=== PATIENT | female | born 1935 | race African-American/Black ===

== ENCOUNTER 2016-11-08 13:38 | Inpatient (IN) | payer MEDICARE, MEDICAID ==
[~2016-11-08] VITALS: Ht 170.2 cm; Wt 96.2 kg
[~2016-11-08 13:38] MED LIST: AMLO5TAB88 PO; ASPI-867 PO; ATOR20TA65 PO; CALC667C PO; Docusate Sodium PO; GABA-529 PO; LEVO250T2 PO; LOSA25TA3 PO; NEPVIT PO; OMEP20CA10 PO; PRED5TAB48 PO; [UNRECOGNIZED DRUG - CODE] PO
[2016-11-08] MEDS ORDERED: FUROSEMIDE 40MG/4ML VIAL IV STA (16:44)
[2016-11-08 17:15] LABS: BASOPHILS % 1.7 % (0.0-2.0); EOSINOPHILS % 6.8 % (0.0-5.0); HEMATOCRIT. 32.6 % (36.0-48.0); HEMOGLOBIN. 10.7 g/dL (12.0-16.0); LYMPHOCYTES % 25.9 % (20.0-50.0); MEAN CORPUSCULAR HEMOGLOBIN 30.5 pg (28.0-32.0); MEAN CORPUSCULAR VOLUME 93.2 fL (81.0-99.0); MEAN PLATELET VOLUME 9.4 fl (7.4-10.4); MONOCYTES % 6.2 % (2.0-8.0); NEUTROPHILS % 59.4 % (40.0-76.0); PLATELET 253 x1000/uL (130-400); RED CELL DISTRIBUTION WIDTH 16.4 % (11.6-14.6)
[2016-11-08 17:22] LABS: PARTIAL THROMBOPLASTIN TIME 24.5 sec (24.0-34.0); PROTHROMBIN TIME 10.4 sec
[2016-11-08 17:24] LABS: CARBON DIOXIDE 28 mEq/L (21-32); CHLORIDE 98 mEq/L (98-107)
[2016-11-08 17:30] LABS: CREATINE KINASE 143 IU/L (26-192)
[2016-11-08 17:31] LABS: TROPONIN I < 0.02 ng/mL (0.00-0.04)
[2016-11-08 22:00] VITALS: BP 126/61
[2016-11-08 22:32] LABS: CLARITY URINE CLOUDY (CLEAR); COLOR URINE YELLOW (YELLOW); GLUCOSE URINE NEGATIVE (NEGATIVE); KETONES URINE NEGATIVE (NEGATIVE); LEUKOCYTE ESTERASE URINE 3+ (NEGATIVE); NITRITE URINE POSITIVE (NEGATIVE); OCCULT BLOOD URINE 1+ (NEGATIVE); PH URINE 5.5 (4.5-8.0); PROTEIN URINE 1+ (NEGATIVE); SPECIFIC GRAVITY URINE 1.012 (1.005-1.030); UROBILINOGEN URINE 0.2 E.U./dL (0.2-1.0)
[2016-11-09] VITALS: BP_SYST 126; BP_SYST 135; BP_DIAS 61; BP_DIAS 70
[2016-11-09] MEDS ORDERED: SEVE800T8 PO (00:33)
[2016-11-09] MEDS ORDERED: INSASP SQ (00:33)
[2016-11-09] MEDS ORDERED: INSU3INS6 SUBCUT (00:33)
[2016-11-09] MEDS ORDERED: HYDROCODONE/ACETAMINOPHEN 5/325MG TABLET PO PRN (01:15)
[2016-11-09] MEDS ORDERED: DEXTROSE 50% WATER 50ML SYRINGE IV PRN (01:15)
[2016-11-09] MEDS ORDERED: LEVOFLOXACIN 500MG PREMIX 100 ML IV SCH (03:00)
[2016-11-09 04:00] VITALS: BP 138/78
[2016-11-09] MEDS: BLOOD SUGAR DIAGNOSTIC STRIP TEST SCH ×4 (06:32→21:17)
[2016-11-09 06:52] LABS: HEMATOCRIT 30.6 % (36.0-48.0); HEMOGLOBIN 10.1 g/dL (12.0-16.0); MEAN CORPUSCULAR HEMOGLOBIN 30.6 pg (28.0-32.0); MEAN CORPUSCULAR VOLUME 92.8 fL (81.0-99.0); PLATELET 243 x1000/uL (130-400); RED BLOOD CELL COUNT 3.29 mill/uL (4.2-5.4); RED CELL DISTRIBUTION WIDTH 16.4 % (11.6-14.6)
[2016-11-09 08:00] VITALS: BP 141/66
[2016-11-09] MEDS: INSULIN LISPRO 100 UNITS/ML SUBCUT SCH ×4 (08:44→21:22)
[2016-11-09] MEDS: ENOXAPARIN 30MG/0.3ML SYR SUBCUT SCH (08:46)
[2016-11-09] MEDS: AMLODIPINE 5MG TABLET PO SCH (08:46)
[2016-11-09] MEDS: GABAPENTIN 100MG CAPSULE PO SCH ×2 (08:46→17:39)
[2016-11-09] MEDS: DOCUSATE SODIUM 100MG CAPSULE PO SCH (08:46)
[2016-11-09] MEDS: LOSARTAN POTASSIUM 25 MG TABLET PO SCH (08:47)
[2016-11-09] MEDS ORDERED: SEVELAMER CARBONATE 800 MG TABLET PO SCH (09:00)
[2016-11-09 12:00] VITALS: BP 123/63
[2016-11-09] MEDS: SEVELAMER CARBONATE 800 MG TABLET PO SCH ×2 (13:05→17:39)
[2016-11-09] MEDS: LACTULOSE 20G/30ML UDC PO SCH (14:15)
[2016-11-09 15:11] LABS: CLARITY URINE TURBID (CLEAR); COLOR URINE ORANGE (YELLOW); GLUCOSE URINE 1+ (NEGATIVE); KETONES URINE NEGATIVE (NEGATIVE); LEUKOCYTE ESTERASE URINE 3+ (NEGATIVE); NITRITE URINE POSITIVE (NEGATIVE); OCCULT BLOOD URINE 3+ (NEGATIVE); PH URINE 7.5 (4.5-8.0); PROTEIN URINE 2+ (NEGATIVE); SPECIFIC GRAVITY URINE 1.011 (1.005-1.030); UROBILINOGEN URINE 0.2 E.U./dL (0.2-1.0)
[2016-11-09 16:00] VITALS: BP 115/58
[2016-11-09 20:00] VITALS: BP 120/56
[2016-11-09] MEDS: ATORVASTATIN CALCIUM 20MG TABLET PO SCH (21:22)
[2016-11-10] VITALS (11 sets, daily range): BP systolic 122–152; BP diastolic 61–78
[2016-11-10 06:01] LABS: BASOPHILS % 0.6 % (0.0-2.0); HEMATOCRIT. 28.5 % (36.0-48.0); HEMOGLOBIN. 9.9 g/dL (12.0-16.0); MEAN CORPUSCULAR HEMOGLOBIN 32.2 pg (28.0-32.0); MEAN CORPUSCULAR VOLUME 92.6 fL (81.0-99.0); MEAN PLATELET VOLUME 9.6 fl (7.4-10.4); MONOCYTES % 7.3 % (2.0-8.0); NEUTROPHILS % 55.1 % (40.0-76.0); PLATELET 246 x1000/uL (130-400); RED BLOOD CELL COUNT 3.07 mill/uL (4.2-5.4); RED CELL DISTRIBUTION WIDTH 16.4 % (11.6-14.6)
[2016-11-10] MEDS: BLOOD SUGAR DIAGNOSTIC STRIP TEST SCH ×4 (07:41→21:00)
[2016-11-10] MEDS: INSULIN LISPRO 100 UNITS/ML SUBCUT SCH ×4 (07:50→21:00)
[2016-11-10] MEDS: LACTULOSE 20G/30ML UDC PO SCH (09:00)
[2016-11-10] MEDS: ENOXAPARIN 30MG/0.3ML SYR SUBCUT SCH (09:00)
[2016-11-10] MEDS: GABAPENTIN 100MG CAPSULE PO SCH ×2 (09:20→17:46)
[2016-11-10] MEDS: DOCUSATE SODIUM 100MG CAPSULE PO SCH (09:20)
[2016-11-10] MEDS: LOSARTAN POTASSIUM 25 MG TABLET PO SCH (09:20)
[2016-11-10] MEDS: SEVELAMER CARBONATE 800 MG TABLET PO SCH ×3 (09:20→17:46)
[2016-11-10] MEDS: AMLODIPINE 5MG TABLET PO SCH (09:20)
[2016-11-10] MEDS ORDERED: LIDOCAINE HCL 1% 20ML VIAL (Pyxis) INJ ONE (09:53)
[2016-11-10] MEDS ORDERED: SODIUM BICARBONATE 4% (2.4MEQ) 5ML VIAL IV ONE (09:53)
[2016-11-10] MEDS ORDERED: HEPARIN 1000 UNITS/ML 10ML ONE (09:53)
[2016-11-10] MEDS ORDERED: IOHEXOL-300 100 ML BOTTLE ONE (09:54)
[2016-11-10] MEDS ORDERED: FENTANYL CITRATE/PF 50MCG/ML 2ML VIAL ONE (10:16)
[2016-11-10] MEDS ORDERED: CEFAZOLIN 1000MG PREMIX 50 ML IV ONE ×2 (10:16→11:15)
[2016-11-10] MEDS ORDERED: FENTANYL CITRATE/PF 50MCG/ML 2ML VIAL IV ONE (11:15)
[2016-11-10] MEDS ORDERED: HEPARIN 5000 UNITS/ML VIAL IV ONE (11:15)
[2016-11-10] MEDS: ATORVASTATIN CALCIUM 20MG TABLET PO SCH (22:04)
[2016-11-10] MEDS: INSULIN DETEMIR UD 100 UNITS/ML SYR SUBCUT SCH (22:05)
[2016-11-11] VITALS: BP 120/66
[2016-11-11] MEDS: IPRATROPIUM/ALBUTEROL 0.5-3(2.5)MG/3ML NEB HHN SCH ×4 (01:19→21:27)
[2016-11-11] MEDS ORDERED: LEVOFLOXACIN 250MG PREMIX 50 ML IV SCH (03:00)
[2016-11-11 04:00] VITALS: BP 118/80
[2016-11-11] MEDS: BLOOD SUGAR DIAGNOSTIC STRIP TEST SCH ×4 (06:13→21:22)
[2016-11-11 06:31] LABS: BASOPHILS % 0.8 % (0.0-2.0); EOSINOPHILS % 6.8 % (0.0-5.0); HEMATOCRIT. 28.4 % (36.0-48.0); HEMOGLOBIN. 9.6 g/dL (12.0-16.0); LYMPHOCYTES % 28.3 % (20.0-50.0); MEAN CORPUSCULAR HEMOGLOBIN 30.9 pg (28.0-32.0); MEAN CORPUSCULAR VOLUME 91.8 fL (81.0-99.0); MEAN PLATELET VOLUME 9.2 fl (7.4-10.4); MONOCYTES % 8.4 % (2.0-8.0); NEUTROPHILS % 55.7 % (40.0-76.0); PLATELET 210 x1000/uL (130-400); RED CELL DISTRIBUTION WIDTH 16.1 % (11.6-14.6)
[2016-11-11 08:00] VITALS: BP 129/81
[2016-11-11] MEDS: LACTULOSE 20G/30ML UDC PO SCH (09:00)
[2016-11-11] MEDS: AMLODIPINE 5MG TABLET PO SCH (09:18)
[2016-11-11] MEDS: SEVELAMER CARBONATE 800 MG TABLET PO SCH ×3 (09:18→18:23)
[2016-11-11] MEDS: GABAPENTIN 100MG CAPSULE PO SCH ×2 (09:19→18:23)
[2016-11-11] MEDS: LOSARTAN POTASSIUM 25 MG TABLET PO SCH (09:20)
[2016-11-11] MEDS: DOCUSATE SODIUM 100MG CAPSULE PO SCH (09:20)
[2016-11-11] MEDS: ENOXAPARIN 30MG/0.3ML SYR SUBCUT SCH (09:21)
[2016-11-11] MEDS: INSULIN LISPRO 100 UNITS/ML SUBCUT SCH ×4 (09:26→21:23)
[2016-11-11 13:52] LABS: T4 FREE 0.68 ng/dL (0.76-1.46)
[2016-11-11 15:00] LABS: FOLIC ACID (FOLATE) SERUM 6.2 ng/mL (>5.38)
[2016-11-11 16:00] VITALS: BP 113/49
[2016-11-11 20:00] VITALS: BP 123/55
[2016-11-11] MEDS ORDERED: EPOETIN ALFA 4000UNITS/ML VIAL SUBCUT SCH (21:00)
[2016-11-11] MEDS: ATORVASTATIN CALCIUM 20MG TABLET PO SCH (21:22)
[2016-11-11] MEDS: INSULIN DETEMIR UD 100 UNITS/ML SYR SUBCUT SCH (21:24)
[2016-11-12] VITALS: BP 108/56
[2016-11-12] MEDS: IPRATROPIUM/ALBUTEROL 0.5-3(2.5)MG/3ML NEB HHN SCH ×4 (02:01→20:12)
[2016-11-12 04:00] VITALS: BP 109/47
[2016-11-12] MEDS: BLOOD SUGAR DIAGNOSTIC STRIP TEST SCH ×4 (06:23→21:56)
[2016-11-12 07:07] LABS: HEMOGLOBIN 9.3 g/dL (12.0-16.0); MEAN CORPUSCULAR HEMOGLOBIN 30.7 pg (28.0-32.0); MEAN CORPUSCULAR VOLUME 91.7 fL (81.0-99.0); PLATELET 218 x1000/uL (130-400); RED BLOOD CELL COUNT 3.05 mill/uL (4.2-5.4); RED CELL DISTRIBUTION WIDTH 16.1 % (11.6-14.6)
[2016-11-12 08:00] VITALS: BP 122/62
[2016-11-12 08:14] LABS: PHOSPHORUS 5.8 mg/dL (2.5-4.9)
[2016-11-12] MEDS: GABAPENTIN 100MG CAPSULE PO SCH ×2 (08:26→17:30)
[2016-11-12] MEDS: ENOXAPARIN 30MG/0.3ML SYR SUBCUT SCH (08:26)
[2016-11-12] MEDS: SEVELAMER CARBONATE 800 MG TABLET PO SCH ×3 (08:26→17:30)
[2016-11-12] MEDS: DOCUSATE SODIUM 100MG CAPSULE PO SCH (08:27)
[2016-11-12] MEDS: AMLODIPINE 5MG TABLET PO SCH (08:27)
[2016-11-12] MEDS: LOSARTAN POTASSIUM 25 MG TABLET PO SCH (08:27)
[2016-11-12] MEDS: LACTULOSE 20G/30ML UDC PO SCH (08:31)
[2016-11-12] MEDS: INSULIN LISPRO 100 UNITS/ML SUBCUT SCH ×4 (08:31→21:58)
[2016-11-12] MEDS ORDERED: METHYLPREDNISOLONE SOD SUCC 40 MG/ML VIAL IV SCH (10:00)
[2016-11-12] MEDS ORDERED: IPRATROPIUM/ALBUTEROL 0.5-3(2.5)MG/3ML NEB HHN PRN (10:00)
[2016-11-12 10:40] LABS: HEMATOCRIT 29.8 % (36.0-48.0); HEMOGLOBIN 9.8 g/dL (12.0-16.0); MEAN CORPUSCULAR HEMOGLOBIN 30.6 pg (28.0-32.0); MEAN CORPUSCULAR VOLUME 92.7 fL (81.0-99.0); PLATELET 222 x1000/uL (130-400); RED BLOOD CELL COUNT 3.21 mill/uL (4.2-5.4); RED CELL DISTRIBUTION WIDTH 16.4 % (11.6-14.6)
[2016-11-12] MEDS: OMEPRAZOLE 20MG CAPSULE EXTENDED RELEASE PO SCH (11:55)
[2016-11-12] MEDS: CEFAZOLIN 1000MG PREMIX 50 ML IV SCH (11:56)
[2016-11-12 12:00] VITALS: BP 138/57
[2016-11-12] MEDS: CALCIUM ACETATE 667MG CAPSULE PO SCH ×2 (12:33→17:30)
[2016-11-12] MEDS ORDERED: CEFAZOLIN SODIUM 1000MG/VIAL HE SCH (14:00)
[2016-11-12 16:00] VITALS: BP 120/60
[2016-11-12 20:00] VITALS: BP 134/68
[2016-11-12] MEDS: ATORVASTATIN CALCIUM 20MG TABLET PO SCH (21:57)
[2016-11-12] MEDS: INSULIN DETEMIR UD 100 UNITS/ML SYR SUBCUT SCH (21:58)
[2016-11-12] MEDS ORDERED: INSULIN REGULAR (HUMULIN R) 300UNITS/3ML SUBCUT NR (22:30)
[2016-11-13 00:06] VITALS: BP 122/59
[2016-11-13] MEDS: IPRATROPIUM/ALBUTEROL 0.5-3(2.5)MG/3ML NEB HHN SCH ×3 (00:59→13:51)
[2016-11-13 04:00] VITALS: BP 100/56
[2016-11-13] MEDS ORDERED: DEXTROSE 50% WATER 50ML SYRINGE IV PRN (06:30)
[2016-11-13 06:39] LABS: BASOPHILS % 0.3 % (0.0-2.0); EOSINOPHILS % 0.1 % (0.0-5.0); HEMATOCRIT. 27.1 % (36.0-48.0); HEMOGLOBIN. 8.9 g/dL (12.0-16.0); LYMPHOCYTES % 8.6 % (20.0-50.0); MEAN CORPUSCULAR HEMOGLOBIN 30.7 pg (28.0-32.0); MEAN CORPUSCULAR VOLUME 93.2 fL (81.0-99.0); MEAN PLATELET VOLUME 9.7 fl (7.4-10.4); MONOCYTES % 6.3 % (2.0-8.0); NEUTROPHILS % 84.7 % (40.0-76.0); PLATELET 232 x1000/uL (130-400); RED BLOOD CELL COUNT 2.91 mill/uL (4.2-5.4); RED CELL DISTRIBUTION WIDTH 15.9 % (11.6-14.6)
[2016-11-13] MEDS: BLOOD SUGAR DIAGNOSTIC STRIP TEST SCH ×2 (06:42→12:55)
[2016-11-13] MEDS: INSULIN LISPRO 100 UNITS/ML SUBCUT SCH ×2 (06:42→13:27)
[2016-11-13 07:02] LABS: PHOSPHORUS 4.2 mg/dL (2.5-4.9)
[2016-11-13] MEDS: OMEPRAZOLE 20MG CAPSULE EXTENDED RELEASE PO SCH (07:20)
[2016-11-13] MEDS ORDERED: GLIPIZIDE 5MG TABLET PO SCH (09:00)
[2016-11-13 09:07] VITALS: BP 118/63
[2016-11-13] MEDS: ENOXAPARIN 30MG/0.3ML SYR SUBCUT SCH (10:11)
[2016-11-13] MEDS: LACTULOSE 20G/30ML UDC PO SCH (10:11)
[2016-11-13] MEDS: GABAPENTIN 100MG CAPSULE PO SCH (10:12)
[2016-11-13] MEDS: DOCUSATE SODIUM 100MG CAPSULE PO SCH (10:12)
[2016-11-13] MEDS: AMLODIPINE 5MG TABLET PO SCH (10:12)
[2016-11-13] MEDS: CALCIUM ACETATE 667MG CAPSULE PO SCH ×2 (10:12→13:22)
[2016-11-13] MEDS: LOSARTAN POTASSIUM 25 MG TABLET PO SCH (10:12)
[2016-11-13] MEDS: SEVELAMER CARBONATE 800 MG TABLET PO SCH ×2 (10:12→13:22)
[2016-11-13] MEDS: CEFAZOLIN 1000MG PREMIX 50 ML IV SCH (10:13)
[2016-11-13 12:11] VITALS: BP 122/64
[2016-11-13 16:08] VITALS: BP 122/64
[2016-11-13 16:17] VITALS: BP 122/60
[2016-11-13] MEDS ORDERED: INSULIN DETEMIR UD 100 UNITS/ML SYR SUBCUT SCH (22:00)
[2016-11-14] MEDS ORDERED: IPRATROPIUM/ALBUTEROL 0.5-3(2.5)MG/3ML NEB HHN PRN (14:00)
== END 2016-11-13 16:50 | DRG 252 ==
LOC: ER 16:41 → 6WST 18:47 → EDBEDREQ 18:50 → ENRESERV 20:24
PROVIDERS: ADMIT Internal Medicine Nephrology; ATTEND Internal Medicine Nephrology
PROC: 5A1D60Z (ICD-10-PCS; principal; 2016-11-10)
PROC: 057Y3ZZ Dilation of Upper Vein, Percutaneous Approach (ICD-10-PCS; 2016-11-10)
PROC: 05CY3ZZ Extirpation of Matter from Upper Vein, Percutaneous Approach (ICD-10-PCS; 2016-11-10)
PROC: B31J1ZZ Fluoroscopy of Left Upper Extremity Arteries using Low Osmolar Contrast (ICD-10-PCS; 2016-11-10)
PROC: B51N1ZZ Fluoroscopy of Left Upper Extremity Veins using Low Osmolar Contrast (ICD-10-PCS; 2016-11-10)
DX: T82.818A Embolism due to vascular prosthetic devices, implants and grafts, initial encounter (principal); N18.6 End stage renal disease; G82.50 Quadriplegia, unspecified; G93.40 Encephalopathy, unspecified; I63.9 Cerebral infarction, unspecified; I13.11 Hypertensive heart and chronic kidney disease without heart failure, with stage 5 chronic kidney disease, or end stage renal disease; N39.0 Urinary tract infection, site not specified; I13.2 Hypertensive heart and chronic kidney disease with heart failure and with stage 5 chronic kidney disease, or end stage renal disease; G95.20 Unspecified cord compression; E11.22 Type 2 diabetes mellitus with diabetic chronic kidney disease; D63.8 Anemia in other chronic diseases classified elsewhere; E11.42 Type 2 diabetes mellitus with diabetic polyneuropathy; E83.39 Other disorders of phosphorus metabolism; I25.10 Atherosclerotic heart disease of native coronary artery without angina pectoris; I50.9 Heart failure, unspecified; J44.9 Chronic obstructive pulmonary disease, unspecified; M47.9 Spondylosis, unspecified; M48.02 Spinal stenosis, cervical region; M48.06 Spinal stenosis, lumbar region; Y83.2 Surgical operation with anastomosis, bypass or graft as the cause of abnormal reaction of the patient, or of later complication, without mention of misadventure at the time of the procedure; Z79.4 Long term (current) use of insulin; Z82.49 Family history of ischemic heart disease and other diseases of the circulatory system; Z83.3 Family history of diabetes mellitus; Z99.2 Dependence on renal dialysis; Z87.440 Personal history of urinary (tract) infections; Z91.19 Patient's noncompliance with other medical treatment and regimen; Z88.4 Allergy status to anesthetic agent; Z88.8 Allergy status to other drugs, medicaments and biological substances
CPT/HCPCS: 36415; 36905; 51702; 70450; 70551; 71010; 72141; 72146; 72148; 80048; 80053; 80076; 81001; 82550; 82607; 82746; 82962; 83036; 83605; 83690; 83735; 83880; 83970; 84100; 84439; 84443; 84481; 84484; 85025; 85027; 85610; 85730; 87040; 87077; 87086; 87186; 92523; 92610; 93005; 93970; 94640; 94664; 96374; 97162; 97166; 97530; 97535; 99285; A6261; C1725; C1766; C1769; C2630; J0690; J0885; J1644; J1650; J1815; J1940; J1956; J2920; J3010; J3490; J7030; J7050; J7620; Q9967; A4315

== ENCOUNTER 2016-11-13 17:05 | Inpatient (IN) | payer MEDICARE, MEDICAID ==
[~2016-11-13] VITALS: Ht 170.2 cm; Wt 96.2 kg
[~2016-11-13 17:05] MED LIST changes: +INSASP SQ; +INSU3INS6 SUBCUT; +SEVE800T8 PO
[2016-11-13] MEDS ORDERED: IPRATROPIUM/ALBUTEROL 0.5-3(2.5)MG/3ML NEB HHN PRN (17:45)
[2016-11-13] MEDS ORDERED: DEXTROSE 50% WATER 50ML SYRINGE IV PRN (17:45)
[2016-11-13] MEDS ORDERED: HYDROCODONE/ACETAMINOPHEN 5/325MG TABLET PO PRN (17:45)
[2016-11-13 18:00] VITALS: BP 122/60
[2016-11-13 20:00] VITALS: BP 118/74
[2016-11-13] MEDS: IPRATROPIUM/ALBUTEROL 0.5-3(2.5)MG/3ML NEB HHN SCH (20:10)
[2016-11-13] MEDS: BLOOD SUGAR DIAGNOSTIC STRIP TEST SCH (21:39)
[2016-11-13] MEDS: ATORVASTATIN CALCIUM 20MG TABLET PO SCH (22:22)
[2016-11-13] MEDS: INSULIN LISPRO 100 UNITS/ML SUBCUT SCH (22:27)
[2016-11-13] MEDS: INSULIN DETEMIR UD 100 UNITS/ML SYR SUBCUT SCH (22:29)
[2016-11-14] MEDS: IPRATROPIUM/ALBUTEROL 0.5-3(2.5)MG/3ML NEB HHN SCH ×3 (01:49→14:29)
[2016-11-14 06:32] LABS: EOSINOPHILS % 4.9 % (0.0-5.0); HEMATOCRIT. 27.4 % (36.0-48.0); HEMOGLOBIN. 9.1 g/dL (12.0-16.0); LYMPHOCYTES % 24.6 % (20.0-50.0); MEAN CORPUSCULAR HEMOGLOBIN 30.9 pg (28.0-32.0); MEAN CORPUSCULAR VOLUME 93.1 fL (81.0-99.0); MEAN PLATELET VOLUME 9.3 fl (7.4-10.4); MONOCYTES % 8.6 % (2.0-8.0); NEUTROPHILS % 60.9 % (40.0-76.0); PLATELET 222 x1000/uL (130-400); RED BLOOD CELL COUNT 2.95 mill/uL (4.2-5.4); RED CELL DISTRIBUTION WIDTH 16.1 % (11.6-14.6)
[2016-11-14] MEDS: OMEPRAZOLE 20MG CAPSULE EXTENDED RELEASE PO SCH (06:34)
[2016-11-14] MEDS: BLOOD SUGAR DIAGNOSTIC STRIP TEST SCH ×4 (06:34→21:00)
[2016-11-14] MEDS: INSULIN LISPRO 100 UNITS/ML SUBCUT SCH ×4 (06:38→22:46)
[2016-11-14 06:58] LABS: CARBON DIOXIDE 29 mEq/L (21-32); CHLORIDE 96 mEq/L (98-107)
[2016-11-14 07:01] LABS: PREALBUMIN 32.3 mg/dL (20.0-40.0)
[2016-11-14 08:02] VITALS: BP 115/65
[2016-11-14] MEDS: SEVELAMER CARBONATE 800 MG TABLET PO SCH ×3 (08:25→16:38)
[2016-11-14] MEDS: GABAPENTIN 100MG CAPSULE PO SCH ×2 (08:25→16:38)
[2016-11-14] MEDS: CALCIUM ACETATE 667MG CAPSULE PO SCH ×3 (08:25→16:38)
[2016-11-14] MEDS ORDERED: DOCUSATE SODIUM 100MG CAPSULE PO SCH (09:00)
[2016-11-14] MEDS ORDERED: ENOXAPARIN 30MG/0.3ML SYR SUBCUT SCH (09:00)
[2016-11-14] MEDS ORDERED: LOSARTAN POTASSIUM 25 MG TABLET PO SCH (09:00)
[2016-11-14] MEDS ORDERED: LACTULOSE 20G/30ML UDC PO SCH (09:00)
[2016-11-14] MEDS ORDERED: AMLODIPINE 5MG TABLET PO SCH (09:00)
[2016-11-14] MEDS ORDERED: CEFAZOLIN 1000MG PREMIX 50 ML IV SCH (10:00)
[2016-11-14 20:00] VITALS: BP 105/50
[2016-11-14] MEDS ORDERED: EPOETIN ALFA 4000UNITS/ML VIAL SUBCUT SCH (21:00)
[2016-11-14] MEDS ORDERED: ACETYLCYSTEINE 200MG/ML 20% VIAL 4ML INH SCH (22:00)
[2016-11-14] MEDS ORDERED: IPRATROPIUM/ALBUTEROL 0.5-3(2.5)MG/3ML NEB HHN SCH (22:00)
[2016-11-14] MEDS: ATORVASTATIN CALCIUM 20MG TABLET PO SCH (22:37)
[2016-11-14] MEDS: INSULIN DETEMIR UD 100 UNITS/ML SYR SUBCUT SCH (22:47)
[2016-11-15] MEDS: OMEPRAZOLE 20MG CAPSULE EXTENDED RELEASE PO SCH (06:27)
[2016-11-15 06:51] LABS: EOSINOPHILS % 9.2 % (0.0-5.0); HEMATOCRIT. 28.7 % (36.0-48.0); HEMOGLOBIN. 9.4 g/dL (12.0-16.0); LYMPHOCYTES % 26.1 % (20.0-50.0); MEAN CORPUSCULAR HEMOGLOBIN 30.6 pg (28.0-32.0); MEAN CORPUSCULAR VOLUME 92.9 fL (81.0-99.0); MEAN PLATELET VOLUME 9.4 fl (7.4-10.4); MONOCYTES % 10.5 % (2.0-8.0); NEUTROPHILS % 53.2 % (40.0-76.0); PLATELET 237 x1000/uL (130-400); RED BLOOD CELL COUNT 3.09 mill/uL (4.2-5.4); RED CELL DISTRIBUTION WIDTH 16.3 % (11.6-14.6)
[2016-11-15] MEDS: INSULIN LISPRO 100 UNITS/ML SUBCUT SCH (06:52)
[2016-11-15] MEDS: BLOOD SUGAR DIAGNOSTIC STRIP TEST SCH (06:52)
[2016-11-15 08:00] VITALS: BP 113/57
[2016-11-15 08:56] VITALS: BP 113/57
[2016-11-15] MEDS ORDERED: CALCIUM ACETATE 667MG CAPSULE PO SCH (09:00)
== END 2016-11-15 09:05 | disposition short-term general hospital (02) | DRG 551 ==
PROVIDERS: ADMIT Physical Medicine & Rehabilitation Spinal Cord Injury Medicine; ATTEND Internal Medicine Nephrology
DX: M48.02 Spinal stenosis, cervical region (principal); N18.6 End stage renal disease; G93.40 Encephalopathy, unspecified; G82.50 Quadriplegia, unspecified; J96.00 Acute respiratory failure, unspecified whether with hypoxia or hypercapnia; N39.0 Urinary tract infection, site not specified; I13.2 Hypertensive heart and chronic kidney disease with heart failure and with stage 5 chronic kidney disease, or end stage renal disease; G95.9 Disease of spinal cord, unspecified; G95.20 Unspecified cord compression; M48.06 Spinal stenosis, lumbar region; M47.897 Other spondylosis, lumbosacral region; J44.9 Chronic obstructive pulmonary disease, unspecified; I50.9 Heart failure, unspecified; D64.9 Anemia, unspecified; I25.10 Atherosclerotic heart disease of native coronary artery without angina pectoris; E78.5 Hyperlipidemia, unspecified; E11.42 Type 2 diabetes mellitus with diabetic polyneuropathy; E11.22 Type 2 diabetes mellitus with diabetic chronic kidney disease; D63.8 Anemia in other chronic diseases classified elsewhere; R26.9 Unspecified abnormalities of gait and mobility; Z99.2 Dependence on renal dialysis; Z86.73 Personal history of transient ischemic attack (TIA), and cerebral infarction without residual deficits; Z88.8 Allergy status to other drugs, medicaments and biological substances; Z79.899 Other long term (current) drug therapy
CPT/HCPCS: 36415; 80048; 80053; 82962; 83735; 84100; 84134; 85025; 93970; 94640; 94664; 97112; 97163; 97167; 97530; 97535; J0690; J0885; J1650; J1815; J7050; J7608; J7620